=== PATIENT | male | born 1965 | race Caucasian/White ===

== ENCOUNTER 2016-12-02 16:55 | Emergency (ER) | payer OTHER ==
[2016-12-02] MEDS ORDERED: KETOROLAC TROMETHAMINE 15 MG/ML VIAL ONE (17:21)
[2016-12-02] MEDS ORDERED: MORPHINE SULFATE 4 MG/ML SYRINGE ONE (17:22)
[2016-12-02 17:32] LABS: ABSOLUTE NEUTROPHIL COUNT 7.4 K/mm3 (1.8-7.7); BASO # 0.1 K/mm3 (0.0-0.2); BASO % 0.5 % (0.2-1.0); EOS # 0.2 (0.0-0.5); EOS % 1.6 % (0.9-2.9); HEMATOCRIT 43.9 % (32.0-52.0); HEMOGLOBIN 14.7 gm/l (14.0-18.0); IMM NEUT% 0.2 % (0-1); LYMPH # 2.5 (1.0-4.8); LYMPH % 22.7 % (15-45); MEAN CELL VOLUME 88.5 fl (80.0-94.0); MEAN CORPUSCULAR HEMOGLOBIN 29.6 pg (27.0-31.0); MEAN CORPUSCULAR HGB CONC 33.5 g/dl (33.0-37.0); MEAN PLATELET VOLUME 9.4 fl (7.4-10.4); MONO # 0.8 (0.0-0.8); MONO % 7.1 % (4-12); NEUT % 67.9 % (43-75); PLATELET COUNT 325 K/mm3 (130-400); RED CELL DISTRIBUTION WIDTH 12.8 % (11.5-14.5)
[2016-12-02 17:49] LABS: CALCIUM 9.8 mg/dL (8.6-10.3)
--- NOTE | 2016-12-02 17:51 | CT ---
Name: PRO HOUGH JR Exam: Noncontrast renal stone CT Comparison: None Clinical History: Left flank pain Procedure: Helical CT using multidetector technique was applied to the abdomen and pelvis without contrast. Sagittal, axial and coronal reconstructions were obtained. An automated dose reduction technique was used to minimize patient radiation dose. Findings: CT abdomen (noncontrast): Lung bases are clear. Heart is not enlarged. There is no pericardial effusion. Noncontrast images of the liver, gallbladder, pancreas, spleen, adrenal glands, aorta, IVC and portal vein are normal. There are solitary nonobstructing punctate calculi in each kidney. Lower pole left kidney, there is a 3 mm nonobstructing calculus. In the left ureterovesical junction, there is an 8 mm regular calculus. There is a small amount of periureteral and peripelvic stranding. There is no current hydronephrosis. The stomach is partially filled. Small bowel is normal. The descending colon is thick-walled but empty. There is no free air, free fluid or suspicious adenopathy. Multilevel degenerative disease of the spine is present. CT pelvis (noncontrast): Bladder, prostate and seminal vesicles are normal. Distal ureters are normal caliber and without calculi. Small bowel, colon and appendix are normal. There is no free air, free fluid or suspicious adenopathy. Impression: 1. 8 mm calculus within the right ureteral pelvic junction causing a mild amount of surrounding inflammation. Currently, there is no obstruction. Note: The above report was uploaded to [facility]'s electronic medical records system at 1747 hours.
[2016-12-02 18:35] LABS: SPECIFIC GRAVITY 1.015 (1.001-1.030); URINE BILIRUBIN NEGATIVE (NEGATIVE); URINE BLOOD 4+ (NEGATIVE); URINE GLUCOSE (UA) NEGATIVE (NEGATIVE); URINE LEUKOCYTE ESTERASE NEGATIVE (NEGATIVE); URINE NITRITE NEGATIVE (NEGATIVE); URINE PROTEIN TRACE (NEGATIVE); URINE UROBILINOGEN NORMAL (0-1 mg/dl)
[2016-12-02 18:39] LABS: URINE APPEARANCE SL CLOUDY; URINE COLOR DARK YELLOW
[2016-12-02 18:49] LABS: URINE BACTERIA 1+; URINE EPITHELIAL CELLS 0 /hpf; URINE RBC >100 /hpf; URINE WBC 0-2 /hpf
== END 2016-12-02 19:04 | disposition home or self-care (01) ==
LOC: ED 16:55
DX: N20.0 Calculus of kidney (principal); R11.0 Nausea
CPT/HCPCS: 85025; 87086; 80048; 81001; 74176; 96375; 99284 ×2; 96374; J2270; J1885

== ENCOUNTER 2017-01-17 23:02 | Emergency (ER) | payer SELFPAY ==
[2017-01-18] MEDS ORDERED: KETOROLAC TROMETHAMINE 30 MG/ML 1 ML VIAL ONE (00:23)
[2017-01-18] MEDS ORDERED: HYDROMORPHONE HCL 1 MG/ML SYRINGE ONE (00:23)
[2017-01-18] MEDS ORDERED: ONDANSETRON 4 MG/2ML 2 ML VIAL ONE (00:23)
[2017-01-18 00:50] LABS: ABSOLUTE NEUTROPHIL COUNT 8.1 K/mm3 (1.8-7.7); BASO % 0.3 % (0.2-1.0); EOS # 0.2 (0.0-0.5); EOS % 1.7 % (0.9-2.9); HEMATOCRIT 42.4 % (32.0-52.0); HEMOGLOBIN 14.2 gm/l (14.0-18.0); IMM NEUT% 0.3 % (0-1); LYMPH # 2.9 (1.0-4.8); LYMPH % 23.6 % (15-45); MEAN CORPUSCULAR HEMOGLOBIN 29.5 pg (27.0-31.0); MEAN CORPUSCULAR HGB CONC 33.5 g/dl (33.0-37.0); MEAN PLATELET VOLUME 9.5 fl (7.4-10.4); MONO # 1.1 (0.0-0.8); MONO % 8.6 % (4-12); NEUT % 65.5 % (43-75); PLATELET COUNT 400 K/mm3 (130-400); RED CELL DISTRIBUTION WIDTH 12.3 % (11.5-14.5)
[2017-01-18 01:02] LABS: ALB/GLOB RATIO 1.4 (>1.0); ALBUMIN 4.2 gm/dL (3.5-5.7); CALCIUM 9.7 mg/dL (8.6-10.3)
== END 2017-01-18 01:48 | disposition home or self-care (01) ==
LOC: ED 23:02
DX: N20.9 Urinary calculus, unspecified (principal); Z87.442 Personal history of urinary calculi; F17.200 Nicotine dependence, unspecified, uncomplicated
CPT/HCPCS: 83690; 85025; 80053; 96375 ×2; 99283 ×2; 96374; J1170; J1885; J2405